=== PATIENT | female | born 1985 | race Two or more races ===

== ENCOUNTER 2025-08-04 14:04 | Emergency (ER) | payer OTHER ==
[~2025-08-04] VITALS: Ht 154.9 cm; Wt 56.7 kg
[2025-08-04 16:21] VITALS: BP 105/71; TEMP 98.8; O2SAT 100
== END 2025-08-04 16:21 | disposition home or self-care (01) ==
LOC: ER 14:40
DX: S61.411A Laceration without foreign body of right hand, initial encounter (principal); W25.XXXA Contact with sharp glass, initial encounter; Y93.G1 Activity, food preparation and clean up; Y92.89 Other specified places as the place of occurrence of the external cause; Y99.8 Other external cause status
CPT/HCPCS: 12002; 73130; 99283; A6403